=== PATIENT | female | born 1935 | race Caucasian/White ===

== ENCOUNTER 2017-12-26 19:31 | Emergency (ER) | payer MEDICARE, OTHER ==
[~2017-12-26] VITALS: Ht 162.6 cm; Wt 79.4 kg
[~2017-12-26 19:31] MED LIST: CALCIUM 600 +1 EA13 PO; DAILY VITAMIN1 EAC2 PO; HYDROCODON-ACE1 EA10 PO; LEVOTHYROXINE50 MCG PO; LISINOPRIL20 MG PO; METOPROLOL TART50 MG PO; NORCO 5-325 TA1 EACH PO; POTASSIUM CHLO10 ME1 PO; SIMVASTATIN20 MG PO; TEMAZEPAM15 MG PO; VITAMIN C100 MG PO; XARELTO15 MG PO
[2017-12-26] MEDS ORDERED: NORCO 5-325 TA1 EACH PO ×2 (22:20)
[2017-12-26] MEDS ORDERED: ULTRA-LIGHT RO1 EACH MISC (22:21)
== END 2017-12-26 22:50 | disposition home or self-care (01) ==
LOC: ED 19:31
DX: S83.91XA Sprain of unspecified site of right knee, initial encounter (principal); I10 Essential (primary) hypertension; E03.9 Hypothyroidism, unspecified; Z79.899 Other long term (current) drug therapy; X50.9XXA Other and unspecified overexertion or strenuous movements or postures, initial encounter
CPT/HCPCS: 73560; 99283

== ENCOUNTER 2017-12-27 09:32 | Emergency (ER) | payer MEDICARE, OTHER ==
[~2017-12-27] VITALS: Ht 162.6 cm; Wt 79.4 kg
[~2017-12-27 09:32] MED LIST changes: +ULTRA-LIGHT RO1 EACH MISC
== END 2017-12-27 11:00 | disposition home or self-care (01) ==
LOC: ED 09:32
DX: M25.561 Pain in right knee (principal); I10 Essential (primary) hypertension; E03.9 Hypothyroidism, unspecified; Z79.899 Other long term (current) drug therapy
CPT/HCPCS: 73700; 99284

== ENCOUNTER 2019-06-12 12:20 | Emergency (ER) | payer MEDICARE, OTHER ==
[~2019-06-12] VITALS: Ht 160 cm; Wt 84.4 kg
[2019-06-12] MEDS ORDERED: ZITHROMAX250 MG PO (14:48)
[2019-06-12] MEDS ORDERED: TESSALON PERLE100 MG PO (14:48)
== END 2019-06-12 15:09 | disposition home or self-care (01) ==
LOC: ED 12:20
DX: J40 Bronchitis, not specified as acute or chronic (principal); I10 Essential (primary) hypertension; E03.9 Hypothyroidism, unspecified; Z79.899 Other long term (current) drug therapy
CPT/HCPCS: 71046; 99284-25

== ENCOUNTER 2021-07-14 07:10 | Day surgery (SDC) | payer MEDICARE, OTHER ==
[~2021-07-14] VITALS: Ht 160 cm; Wt 79.4 kg
[~2021-07-14 07:10] MED LIST changes: +KLOR-CON20 MEQ PO; +LASIX20 MG PO; +MULTI VITAMIN1 EACH PO; +TESSALON PERLE100 MG PO; +VITAMIN C1000 MG PO; +ZITHROMAX250 MG PO
[2021-07-14] MEDS ORDERED: TORSEMIDE20 MG (07:56)
--- NOTE | 2021-07-14 09:35 | NUR ---
07/14/21 0935 Neha Sainz 0910-PATIENT ARRIVED TO PACU ON 6L MASK RR EVEN NONAROUSABLE. 6L MASK CO2 READING 30. PATIENT LAYING LEFT LATERAL. ABDOMEN SOFT. IVF INFUSING. AFIB
--- NOTE | 2021-07-14 10:49 | OR ---
[facility] [address] [place], [place] [address] Signed DATE OF OPERATION: 07/14/2021 SURGEON: Sam Magallanes MD PREOPERATIVE DIAGNOSES: 1. Chronic constipation and diarrhea. 2. Intermittent rectal bleeding and mucus. 3. Guaiac-positive stool. 4. Daily anticoagulation. 5. Unremarkable colonoscopy in 2010 with followup in 10 years. POSTOPERATIVE DIAGNOSES: 1. 5 mm polyps x2 in mid to distal right colon (snare). 2. 5 mm polyps x2 at hepatic flexure. 3. 5 mm polyps x2 at distal hepatic flexure. 4. 5 mm polyp x1, proximal transverse colon. 5. Minimal to moderate internal hemorrhoids. 6. Severe angulation at 20 cm. PROCEDURE: Colonoscopy with snare polypectomy and hot biopsy. ESTIMATED BLOOD LOSS: None. INDICATIONS: Meche is an 85-year-old female asked to see me for followup colonoscopy. She remembers a colonoscopy in 2010 while living in [place]. Apparently, there was an upper endoscopy done at the same time. She was positive for H pylori and took antibiotics. She felt much better. They told her to follow up in 10 years for a repeat colonoscopy. She wonders if she had another colonoscopy when she lived out in the [place]. Although her memory is not the best. She has no family history of colon cancer or polyps to her knowledge. She has chronic constipation and diarrhea for many years. She has had a couple of recent episodes of rectal bleeding and mucus. She had been to her primary care provider. She was guaiac positive. The C difficile toxin was negative. Her BUN was normal. The stool calprotectin was normal. She was not anemic with a hemoglobin of 13.5. She has a long history of atrial fibrillation requiring Xarelto. Her left ventricular ejection fraction is good about 45%. She also has good functional status. She even looks a little younger than her stated age. In the office, I had a long discussion with Meche. I gave her a pamphlet on colonoscopy. We reviewed Electronically Signed By: SAM MAGALLANES MD 07/14/21 1049 PATIENT NAME: MECHE BELTRAN OPERATIVE REPORT DATE OF : 37 REPORT #: [id number] PHYSICIAN: SAM MAGALLANES MD PCP: GANESH SEAMAN PA-C REPORT IS CONFIDENTIAL AND NOT TO BE RELEASED WITHOUT AUTHORIZATION [facility] [address] [place] [id number] Signed colonoscopy versus a barium enema. In the end, we decided to proceed with colonoscopy. She understands there is risk including, but not limited to gas bloating, crampy abdominal pain, bleeding, perforation requiring surgery, and missed diagnosis. We thought she would be fine with routine Versed and fentanyl. Although, she understands scope may not pass in 10% of patients. She had expressed understanding and wished to proceed. PROCEDURE NOTE: Meche was taken into our endoscopy suite and placed in the left lateral decubitus position. She was given a total of 5 mg of Versed and 100 mcg of fentanyl. Her digital rectal exam was unremarkable. The rectum was unremarkable as well. We encountered a rather significant angulated area in her colon at 20 cm. I suspect this is from her prior hysterectomy. We simply could not get through this area, she was in too much pain. We were even pushing all that much with the scope. We were fortunate to have an anesthesia provider available. With the addition of the propofol, she relaxed enough, we were able to get around angulation and travel up the rest of the colon. The scope continued to drag back at 20 cm. Fortunately, the rest of the colon was fairly easy to pass the scope. We then way into the cecum itself. Her prep was quite excellent. We could easily see the appendiceal orifice and the ileocecal valve. The scope was then slowly withdrawn. The first polyp in the mid to distal right colon we removed with a combination of hot biopsy and the snare. The rest of the polyps all came out with the help of a hot biopsy forceps. We did not see any diverticula. We came back into the rectum and again, it was unremarkable. Upon retroflexion of scope, we can see minimal to moderate internal hemorrhoids. After this, the gas was suctioned out and colonoscope removed. Overall, Meche tolerated the procedure quite well with the addition of the propofol. She may or may not have some recall prior to the propofol. RECOMMENDATIONS: I will see Meche back in my office in 7 to 14 days to review her results. If she would ever need another colonoscopy in the future, she certainly would need monitored anesthesia care. MD MALLORY Ball/DOROTEOL /[id number] Electronically Signed By: SAM MAGALLANES MD 07/14/21 1049 PATIENT NAME: MECHE BELTRAN OPERATIVE REPORT DATE OF : 37 REPORT #: [id number] PHYSICIAN: SAM MAGALLANES MD PCP: GANESH SEAMAN PA-C REPORT IS CONFIDENTIAL AND NOT TO BE RELEASED WITHOUT AUTHORIZATION [address] [place], [place] [address] Signed cc: LINDEN Galeas MD Copies: GANESH SEAMAN PA-C, ANDREW L MD ~ Electronically Signed By: SAM MAGALLANES MD 07/14/21 1049 PATIENT NAME: MECHE BELTRAN OPERATIVE REPORT DATE OF : 37 REPORT #: [id number] PHYSICIAN: SAM MAGALLANES MD PCP: GANESH SEAMAN PA-C REPORT IS CONFIDENTIAL AND NOT TO BE RELEASED WITHOUT AUTHORIZATION
== END 2021-07-14 10:45 | disposition home or self-care (01) ==
LOC: DS 07:10
PROVIDERS: ATTEND Colon & Rectal Surgery
PROC: 0DBL8ZX Excision of Transverse Colon, Via Natural or Artificial Opening Endoscopic, Diagnostic (ICD-10-PCS; 2021-07-14)
PROC: 0DBK8ZX Excision of Ascending Colon, Via Natural or Artificial Opening Endoscopic, Diagnostic (ICD-10-PCS; principal; 2021-07-14 08:15)
DX: D12.2 Benign neoplasm of ascending colon (principal); D12.3 Benign neoplasm of transverse colon; K64.4 Residual hemorrhoidal skin tags; K64.8 Other hemorrhoids; I12.0 Hypertensive chronic kidney disease with stage 5 chronic kidney disease or end stage renal disease; N18.6 End stage renal disease; I48.91 Unspecified atrial fibrillation; Z79.01 Long term (current) use of anticoagulants
CPT/HCPCS: J2250; J2704; J3010

== ENCOUNTER 2023-05-31 00:18 | Emergency (ER) | payer OTHER, MEDICARE ==
[~2023-05-31] VITALS: Ht 160 cm; Wt 81.7 kg
--- OUTSIDE RECORDS SUMMARY | ~2023-05-31 | XMS | Continuity of Care Document ---
Demographics + + + | Address | [address] | | | [place] [address] | + + + | Preferred Language | Unknown | + + + | Marital Status | | + + + | Lutheran Affiliation | Unknown | + + + | Race | White | + + + | Ethnic Group | Not or | + + + Author + + + | Author | [facility] | + + + | Organization | [facility] | + + + | Address | [address] | | | [place] [address] | + + + | Phone | | + + + Care Team Providers + + + + | Care Band Master Name | Role | Phone | + + + + Unavailable | Unavailable | + + + + Unavailable | Unavailable | + + + + Allergies No information. Encounters No information. Functional Status No information. Immunizations No information. Medications + + + + | date | description | facility | + + + + | 2023-03-07 00:00 | RIVAROXABAN | [facility] | + + + + | 2023-03-07 00:00 | POTASSIUM CHLORIDE | [facility] | + + + + | 2023-03-07 00:00 | TEMAZEPAM | [facility] | + + + + | 2023-03-07 00:00 | TORSEMIDE | [facility] | + + + + | 2023-03-07 00:00 | ASCORBIC ACID | [facility] | + + + + | 2023-03-06 00:00 | CEFDINIR | [facility] | + + + + | 2023-03-07 00:00 | FUROSEMIDE | [facility] | + + + + | 2019-06-12 00:00 | BENZONATATE | [facility] | + + + + | 2019-06-12 00:00 | AZITHROMYCIN | [facility] | + + + + | 2023-03-07 00:00 | LISINOPRIL | [facility] | + + + + | 2023-03-07 00:00 | POTASSIUM CHLORIDE | [facility] | + + + + | 2015-02-24 00:00 | HYDROCODONE | [facility] | | | BIT/ACETAMINOPHEN | | + + + + | 2016-10-12 00:00 | HYDROCODONE | [facility] | | | BIT/ACETAMINOPHEN | | + + + + | 2017-12-26 00:00 | HYDROCODONE | [facility] | | | BIT/ACETAMINOPHEN | | + + + + | 2023-03-07 00:00 | METOPROLOL TARTRATE | [facility] | + + + + | 2023-03-07 00:00 | LEVOTHYROXINE SODIUM | [facility] | + + + + Problems + + + + | date | description | facility | + + + + | 2016-10-12 00:00 | Fracture of distal end of | [facility] | | | right radius and ulna | | + + + + | 2017-12-26 00:00 | Sprain of right knee | [facility] | + + + + | 2017-12-27 00:00 | Right knee pain | [facility] | + + + + | 2019-06-12 00:00 | Bronchitis | [facility] | + + + + | 2023-03-06 00:00 | Urinary tract infection | [facility] | + + + + | 2023-03-06 22:08 | HYPOTHYROIDISM, | [facility] | | | UNSPECIFIED | | + + + + | 2023-03-06 22:08 | Essential (primary) | [facility] | | | hypertension | | + + + + | 2023-03-06 22:08 | URINARY TRACT INFECTION, | [facility] | | | SITE NOT SPECIFIED | | + + + + | 2023-03-06 22:08 | DISORIENTATION, | [facility] | | | UNSPECIFIED | | + + + + | 2023-03-06 22:08 | COOKER PIE FILLING (CURRENT) USE OF | [facility] | | | ANTICOAGULANTS | | + + + + | 2023-03-06 22:08 | OTHER HALF-WAY (CURRENT) | [facility] | | | DRUG THERAPY | | + + + + Procedures No information. Results/Labs +--------+--------+ +---------+--------+---------+ | test | date | facility | value | unit | notes | +--------+--------+ +---------+--------+---------+ + + | Result panel 1 | + + + + + +--------+ + + | | 2023-03-06 | [facility] | 10.4 | (missing) | (missing) | | (unavailable | [facility]30:07 [facility] | | | | + + + +--------+ + + + + | Result panel 2 | + + + + + +--------+ + + | | 2023-03-06 | [facility] | 85.4 | (missing) | (missing) | | (unavailable | [facility]30:07 [facility] | | | | + + + +--------+ + + + + | Result panel 3 | + + + + + +-------+ + + | | 2023-03-06 | [facility] | 5.9 | (missing) | (missing) | | (unavailable | [facility]30[facility]07 [facility] | | | | + + + +-------+ + + + + | Result panel 4 | + + + + + +-------+ + + | | 2023-03-06 | [facility] | 8.4 | (missing) | (missing) | | (unavailable | [facility]30[facility]07 [facility] | | | | + + + +-------+ + + + + | Result panel 5 | + + + + + +-------+ + + | | 2023-03-06 | [facility] | 0.0 | (missing) | (missing) | | (unavailable | [facility]07 [facility] | | | | + + + +-------+ + + + + | Result panel 6 | + + + + + +-------+ + + | | 2023-03-06 | [facility] | 0.3 | (missing) | (missing) | | (unavailable | [facility] | | | | + + + +-------+ + + + + | Result panel 7 | + + + + + +--------+ + + | | 2023-03-06 | [facility] | 13.0 | (missing) | (missing) | | (unavailable | [facility]07 [facility] | | | | + + + +--------+ + + + + | Result panel 8 | + + + + + +--------+ + + | | 2023-03-06 | [facility] | 1.02 | (missing) | (missing) | | (unavailable | [facility]07 [facility] | | | | + + + +--------+ + + + + | Result panel 9 | + + + + + + + + + | | 2023-03-06 | [facility] | YELLOW | (missing) | (missing) | | (unavailable | [facility]07 [facility] | | | | + + + + + + + + + | Result panel 10 | + + + + + +---------+ + + | | 2023-03-06 | [facility] | CLEAR | (missing) | (missing) | | (unavailable | [facility]07 [facility] | | | | + + + +---------+ + + + + | Result panel 11 | + + + + + +---------+ + + | | 2023-03-06 | [facility] | SMALL | (missing) | (missing) | | (unavailable | [facility]30[facility]07 [facility] | | | | + + + +---------+ + + + + | Result panel 12 | + + + + + +--------+ + + | | 2023-03-06 | [facility] | 4.60 | (missing) | (missing) | | (unavailable | [facility]30[facility]07 [facility] | | | | + + + +--------+ + + + + | Result panel 13 | + + + + + + + + + | | 2023-03-06 | [facility] | NEGATIVE | (missing) | (missing) | | (unavailable | [facility]07 [facility] | | | | + + + + + + + + + | Result panel 14 | + + + + + +---------+ + + | | 2023-03-06 | [facility] | SMALL | (missing) | (missing) | | (unavailable | [facility]07 [facility] | | | | + + + +---------+ + + + + | Result panel 15 | + + + + + +---------+ + + | | 2023-03-06 | [facility] | 1.015 | (missing) | (missing) | | (unavailable | [facility]30[facility]07 [facility] | | | | + + + +---------+ + + + + | Result panel 16 | + + + + + + + + + | | 2023-03-06 | [facility] | TRACE-I | (missing) | (missing) | | (unavailable | [facility]30[facility]07 [facility] | | | | + + + + + + + + + | Result panel 17 | + + + + + +-------+ + + | | 2023-03-06 | [facility] | 7.5 | (missing) | (missing) | | (unavailable | [facility]30[facility]07 [facility] | | | | + + + +-------+ + + + + | Result panel 18 | + + + + + +-------+ + + | | 2023-03-06 | [facility] | 100 | (missing) | (missing) | | (unavailable | [facility]30:07 [facility] | | | | + + + +-------+ + + + + | Result panel 19 | + + + + + + + + + | | 2023-03-06 | [facility] | NORMAL | (missing) | (missing) | | (unavailable | [facility]30[facility]07 [facility] | | | | + + + + + + + + + | Result panel 20 | + + + + + + + + + | | 2023-03-06 | [facility] | NEGATIVE | (missing) | (missing) | | (unavailable | [facility]07 [facility] | | | | + + + + + + + + + | Result panel 21 | + + + + + + + + + | | 2023-03-06 | [facility] | NEGATIVE | (missing) | (missing) | | (unavailable | [facility]07 [facility] | | | | + + + + + + + + + | Result panel 22 | + + + + + +-------+ + + | | 2023-03-06 | [facility] | 2-3 | (missing) | (missing) | | (unavailable | [facility]07 [facility] | | | | + + + +-------+ + + + + | Result panel 23 | + + + + + +--------+ + + | | 2023-03-06 | [facility] | 14.5 | (missing) | (missing) | | (unavailable | [facility]07 [facility] | | | | + + + +--------+ + + + + | Result panel 24 | + + + + + +---------+ + + | | 2023-03-06 | [facility] | 21-40 | (missing) | (missing) | | (unavailable | [facility]07 [facility] | | | | + + + +---------+ + + + + | Result panel 25 | + + + + + + + + + | | 2023-03-06 | [facility] | SQUAMOUS 1+ | (missing) | (missing) | | (unavailable | [facility]07 [facility] | | | | + + + + + + + + + | Result panel 26 | + + + + + + + + + | | 2023-03-06 | [facility] | NONE SEEN | (missing) | (missing) | | (unavailable | [facility]07 [facility] | | | | + + + + + + + + + | Result panel 27 | + + + + + +------+ + + | | 2023-03-06 | [facility] | 2+ | (missing) | (missing) | | (unavailable | [facility]07 [facility] | | | | + + + +------+ + + + + | Result panel 28 | + + + + + + + + + | | 2023-03-06 | [facility] | HYALINE 1+ | (missing) | (missing) | | (unavailable | [facility]07 [facility] | | | | + + + + + + + + + | Result panel 29 | + + + + + +-------+ + + | | 2023-03-06 | [facility] | Yes | (missing) | (missing) | | (unavailable | [facility]07 [facility] | | | | + + + +-------+ + + + + | Result panel 30 | + + + + + +-------+---------+ + | | 2023-03-06 | [facility] | 148 | mg/dL | (missing) | | (unavailable | [facility]:07 [facility] | | | | + + + +-------+---------+ + + + | Result panel 31 | + + + + + +------+---------+ + | | 2023-03-06 | [facility] | 20 | mg/dL | (missing) | | (unavailable | [facility]07 [facility] | | | | + + + +------+---------+ + + + | Result panel 32 | + + + + + +--------+---------+ + | | 2023-03-06 | [facility] | 1.40 | mg/dL | (missing) | | (unavailable | [facility]07 [facility] | | | | + + + +--------+---------+ + + + | Result panel 33 | + + + + + +------+ + + | | 2023-03-06 | [facility] | 37 | (missing) | (missing) | | (unavailable | [facility]07 [facility] | | | | + + + +------+ + + + + | Result panel 34 | + + + + + +--------+ + + | | 2023-03-06 | [facility] | 43.7 | (missing) | (missing) | | (unavailable | [facility]07 [facility] | | | | + + + +--------+ + + + + | Result panel 35 | + + + + + +---------+ + + | | 2023-03-06 | [facility] | 14.28 | (missing) | (missing) | | (unavailable | [facility]07 [facility] | | | | + + + +---------+ + + + + | Result panel 36 | + + + + + +-------+ + + | | 2023-03-06 | [facility] | 139 | (missing) | (missing) | | (unavailable | [facility]07 [facility] | | | | + + + +-------+ + + + + | Result panel 37 | + + + + + +-------+ + + | | 2023-03-06 | [facility] | 3.4 | (missing) | (missing) | | (unavailable | [facility]07 [facility] | | | | + + + +-------+ + + + + | Result panel 38 | + + + + + +-------+ + + | | 2023-03-06 | [facility] | 102 | (missing) | (missing) | | (unavailable | [facility]30:07 [facility] | | | | + + + +-------+ + + + + | Result panel 39 | + + + + + +------+ + + | | 2023-03-06 | [facility] | 25 | (missing) | (missing) | | (unavailable | [facility]30[facility]07 [facility] | | | | + + + +------+ + + + + | Result panel 40 | + + + + + +--------+ + + | | 2023-03-06 | [facility] | 15.4 | (missing) | (missing) | | (unavailable | [facility]30[facility]07 [facility] | | | | + + + +--------+ + + + + | Result panel 41 | + + + + + +-------+---------+ + | | 2023-03-06 | [facility] | 9.4 | mg/dL | (missing) | | (unavailable | [facility]30:07 [facility] | | | | + + + +-------+---------+ + + + | Result panel 42 | + + + + + +-------+ + + | | 2023-03-06 | [facility] | 7.9 | (missing) | (missing) | | (unavailable | [facility]30[facility]07 [facility] | | | | + + + +-------+ + + + + | Result panel 43 | + + + + + +-------+ + + | | 2023-03-06 | [facility] | 3.7 | (missing) | (missing) | | (unavailable | [facility]30[facility]07 [facility] | | | | + + + +-------+ + + + + | Result panel 44 | + + + + + +-------+ + + | | 2023-03-06 | [facility] | 4.2 | (missing) | (missing) | | (unavailable | [facility]30[facility]07 [facility] | | | | + + + +-------+ + + + + | Result panel 45 | + + + + + +--------+ + + | | 2023-03-06 | [facility] | 95.0 | (missing) | (missing) | | (unavailable | [facility]30[facility]07 [facility] | | | | + + + +--------+ + + + + | Result panel 46 | + + + + + +--------+ + + | | 2023-03-06 | [facility] | 0.88 | (missing) | (missing) | | (unavailable | [facility]30[facility]07 [facility] | | | | + + + +--------+ + + + + | Result panel 47 | + + + + + +-------+ + + | | 2023-03-06 | [facility] | 1.2 | (missing) | (missing) | | (unavailable | [facility]30[facility]07 [facility] | | | | + + + +-------+ + + + + | Result panel 48 | + + + + + +------+ + + | | 2023-03-06 | [facility] | 19 | (missing) | (missing) | | (unavailable | [facility]30[facility]07 [facility] | | | | + + + +------+ + + + + | Result panel 49 | + + + + + +------+ + + | | 2023-03-06 | [facility] | 17 | (missing) | (missing) | | (unavailable | [facility]30:07 [facility] | | | | + + + +------+ + + + + | Result panel 50 | + + + + + +------+ + + | | 2023-03-06 | [facility] | 87 | (missing) | (missing) | | (unavailable | [facility]30[facility]07 [facility] | | | | + + + +------+ + + + + | Result panel 51 | + + + + + +--------+ + + | | 2023-03-06 | [facility] | 23.9 | (missing) | (missing) | | (unavailable | [facility]30[facility]07 [facility] | | | | + + + +--------+ + + + + | Result panel 52 | + + + + + +--------+ + + | | 2023-03-06 | [facility] | 31.4 | (missing) | (missing) | | (unavailable | [facility]30[facility]07 [facility] | | | | + + + +--------+ + + + + | Result panel 53 | + + + + + +--------+ + + | | 2023-03-06 | [facility] | 33.1 | (missing) | (missing) | | (unavailable | [facility]30[facility]07 [facility] | | | | + + + +--------+ + + + + | Result panel 54 | + + + + + +--------+ + + | | 2023-03-06 | [facility] | 13.9 | (missing) | (missing) | | (unavailable | [facility]30[facility]07 [facility] | | | | + + + +--------+ + + + + | Result panel 55 | + + + + + +-------+ + + | | 2023-03-06 | [facility] | 314 | (missing) | (missing) | | (unavailable | [facility]07 [facility] | | | | + + + +-------+ + + Social History No information. Vital Signs + + + +---------+ | date | measurement | value | units | + + + +---------+ | 2023-03-06 00:00 | BMI | 32.1 | kg/m2 | + + + +---------+ | 2023-03-06 00:00 | height_metric | 160.02 | cm | + + + +---------+ | 2023-03-06 00:00 | height_standard | 63 | in | + + + +---------+ | 2023-03-06 00:00 | weight_metric | 82.3 | kg | + + + +---------+ | 2023-03-06 00:00 | weight_standard | 181.44 | lb | + + + +---------+ | 2023-03-07 00:00 | BP_diastolic | 97 | mmHg | + + + +---------+ | 2023-03-07 00:00 | BP_systolic | 164 | mmHg | + + + +---------+ | 2023-03-07 00:00 | heart_rate | 118 | /min | + + + +---------+ | 2023-03-07 00:00 | o2_saturation | 95 | % | + + + +---------+ | 2023-03-07 00:00 | respiration_rate | 20 | /min | + + + +---------+ | 2023-03-07 00:00 | temperature_metric | 36.78 | C | | | | | | + + + +---------+ | 2023-03-07 00:00 | | 98.2 | F | | | temperature_standar | | | | | d | | | + + + +---------+"
--- OUTSIDE RECORDS SUMMARY | ~2023-05-31 | XMS | Continuity of Care Document ---
Demographics + + + | Address | [address] | | | [place] [address] | + + + | Preferred Language | Unknown | + + + | Marital Status | | + + + | Church Affiliation | Unknown | + + + | Race | White | + + + | Ethnic Group | Not or | + + + Author + + + | Author | [facility] | + + + | Organization | [facility] | + + + | Address | [address] | | | [place] [address] | + + + | Phone | | + + + Care Team Providers + + + + | Care Bar Captain Name | Role | Phone | + + + + Unavailable | Unavailable | + + + + Unavailable | Unavailable | + + + + Allergies No information. Encounters No information. Functional Status No information. Immunizations No information. Medications + + + + | date | description | facility | + + + + | 2023-03-07 00:00 | RIVAROXABAN | [facility] | + + + + | 2023-03-07 00:00 | POTASSIUM CHLORIDE | [facility] | + + + + | 2023-03-07 00:00 | TEMAZEPAM | [facility] | + + + + | 2023-03-07 00:00 | TORSEMIDE | [facility] | + + + + | 2023-03-07 00:00 | ASCORBIC ACID | [facility] | + + + + | 2023-03-06 00:00 | CEFDINIR | [facility] | + + + + | 2023-03-07 00:00 | FUROSEMIDE | [facility] | + + + + | 2019-06-12 00:00 | BENZONATATE | [facility] | + + + + | 2019-06-12 00:00 | AZITHROMYCIN | [facility] | + + + + | 2023-03-07 00:00 | LISINOPRIL | [facility] | + + + + | 2023-03-07 00:00 | POTASSIUM CHLORIDE | [facility] | + + + + | 2015-02-24 00:00 | HYDROCODONE | [facility] | | | BIT/ACETAMINOPHEN | | + + + + | 2016-10-12 00:00 | HYDROCODONE | [facility] | | | BIT/ACETAMINOPHEN | | + + + + | 2017-12-26 00:00 | HYDROCODONE | [facility] | | | BIT/ACETAMINOPHEN | | + + + + | 2023-03-07 00:00 | METOPROLOL TARTRATE | [facility] | + + + + | 2023-03-07 00:00 | LEVOTHYROXINE SODIUM | [facility] | + + + + Problems + + + + | date | description | facility | + + + + | 2016-10-12 00:00 | Fracture of distal end of | [facility] | | | right radius and ulna | | + + + + | 2017-12-26 00:00 | Sprain of right knee | [facility] | + + + + | 2017-12-27 00:00 | Right knee pain | [facility] | + + + + | 2019-06-12 00:00 | Bronchitis | [facility] | + + + + | 2023-03-06 00:00 | Urinary tract infection | [facility] | + + + + | [...] + + + | 2023-03-06 22:08 | LIFE SCIENTIST (CURRENT) USE OF | [facility] | | | ANTICOAGULANTS | | + + + + | 2023-03-06 22:08 | OTHER SENIOR CARE (CURRENT) | [facility] | | | DRUG [...]
[~2023-05-31 00:18] MED LIST changes: +CEFDINIR300 MG PO; +KLOR-CON M1010 MEQ PO; +LEVOTHYROXINE75 MCG PO; +TORSEMIDE20 MG
[2023-05-31 01:06] VITALS: BP 176/109
== END 2023-05-31 01:07 | disposition home or self-care (01) ==
LOC: ED 00:18
DX: S80.01XA Contusion of right knee, initial encounter (principal); W01.10XA Fall on same level from slipping, tripping and stumbling with subsequent striking against unspecified object, initial encounter; I10 Essential (primary) hypertension; E03.9 Hypothyroidism, unspecified; Z79.899 Other long term (current) drug therapy
CPT/HCPCS: 73560; 73660; 99283-25; A9270

== ENCOUNTER 2023-10-02 12:54 | Day surgery (SDC) | payer MEDICARE, OTHER ==
[2023-10-02] MEDS ORDERED: WOMEN'S 50 PLU1 EACH PO (13:27)
[2023-10-02] MEDS ORDERED: VITAMIN C100 MG PO (13:27)
[2023-10-02] MEDS ORDERED: CALCIUM500 M1 PO (13:27)
[2023-10-02 13:41] VITALS: BP 161/89
[2023-10-02 16:38] VITALS: BP 174/87
--- NOTE | 2023-10-02 17:49 | NUR ---
10/02/23 1749 Myrna Talbot 1603 PT ARRIVED TO PACU ON 2L VIA NC, PT ASLEEP AND RESP EVEN AND UNLABORED. 1605 PT WAKES TO TACTILE STIMULI AND REORIENTED TO PACU, THREE LEAD PLACED DUE TO IRREGULAR HEART BEAT SOUND NOTED. A-FIB NOTED AND BASELINE FOR PT. 1617 MD AT BEDSIDE TALKING TO PT, IRREGULAR HEART RHYTHUM AND INCREASED BP NOTED AND MD AWARE. TOLD TO FOLLOW UP WITH PCP. 1630 PT UP TO BATHROOM AND DAUGHTER IN LAW AT BEDSIDE. DC INSTRUCTIONS DISCUSSED WITH DAUGHTER IN LAW AND PLAN OF CARE DSICUSSED. PT SIPPING JUICE PER REQUEST. 1640 PT RETUNRED TO BED AND RN HELPED PT DRESS. RX WITH DC PAPERWORK DISCUSSED AND GIVEN. PT DC VIA WC TO DAUGHTER IN LAW. BOTH VERBALIZED UNDERSTANDING OF MEDICATIONS AND RX, ALL QUESTIONS ANSWERED.
--- NOTE | 2023-10-03 10:51 | OR ---
[facility] [address], [place] [address] Signed DATE OF OPERATION: 10/02/2023 SURGEON: Dami Romero MD PREOPERATIVE DIAGNOSIS: Episodic cervical dysphagia, prior ENT evaluation negative. POSTOPERATIVE DIAGNOSES: Hiatal hernia with minimal distal esophagitis. No evidence of hypopharyngeal stricture, neoplasm, or inflammation. PROCEDURE: Esophagogastroduodenoscopy with biopsy. ANESTHESIA: Intravenous sedation; fentanyl 100 mcg and Versed 3 mg. INDICATION: This 87-year-old white woman is a patient of LILIANA Hanson and was referred for consideration of upper endoscopy on the basis of cervical dysphagia for the past three years. She has had prior ENT evaluation which was said to be negative. She does complain of now a sore throat, but not true dysphagia in the cervical area. She notes that massage has helped. 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 She is admitted to undergo upper endoscopy to better characterize her symptoms. She understands the risk of bleeding, infection, and perforation. FINDINGS: The vocal cords and hypopharyngeal tissues were normal. There is no sign of active inflammation. I thought there was some tonsillolith identified on the left side. She did not have tonsillitis proper so far as could be told, however. The esophagus itself was reasonably normal. The distal portion may have mild inflammation, however. There was a hiatal hernia. Stomach and duodenum were essentially normal. CLOtest was negative. DESCRIPTION OF PROCEDURE: The patient was brought to the endoscopy suite and placed in the lateral decubitus position and underwent topical hypopharyngeal lidocaine anesthesia. A bite block was placed. She was given intravenous sedation to the point of slurred speech and nystagmus with full cardiopulmonary monitoring. Olympus video upper endoscope was passed in the hypopharynx. The vocal cords appeared normal. Careful inspection showed no sign of Electronically Signed By: DAMI ROMERO MD 10/03/23 1051 PATIENT NAME: MECHE BELTRAN OPERATIVE REPORT DATE OF : 37 REPORT #: [id number] PHYSICIAN: DAMI ROMERO MD PCP: CRISELDA SCHUSTER PA-C REPORT IS CONFIDENTIAL AND NOT TO BE RELEASED WITHOUT AUTHORIZATION [facility] [address], [place] [address] Signed other abnormality. The scope was carefully insinuated into the hypopharynx and into the upper portion of the esophagus without impediment. There was no evidence of obvious stricture. The scope was advanced down the esophagus where the distal portion had minimal inflammation. The scope was then advanced to the stomach which was insufflated with air. Rugal folds were normal. Pylorus was normal. Scope was passed through into the duodenum, which was reasonably normal. Biopsies were taken of the duodenum to assess for celiac disease. The scope was withdrawn and biopsies taken of the antrum for both TU and pathologic testing. Retroflexed view was undertaken showing a moderate-sized hiatal hernia. Careful withdrawal of scope to the distal esophagus showed no sign of Blankenship's epithelium and only minimal inflammation as manifested by erythema. Biopsies were obtained. The scope was withdrawn and biopsies then taken of the middle esophagus. Careful withdrawal of the scope through the hypopharyngeal area again demonstrated the area of the upper esophageal sphincter, which was normal without stricture or neoplasm. Careful inspection of the hypopharyngeal tissues showed no other abnormality other than perhaps small tonsillolith in her tonsillar remnant. The scope was removed and the patient was taken to the recovery room in good condition. CONCLUDING DIAGNOSIS: No clear evidence of lesion to account for cervical dysphagia. PLAN: We will treat with Carafate 1 g slurry t.i.d. We will see her back in 6 to 8 weeks and assess her progress and level of complaint. MD RENEE Mao/MODL /[id number] cc: Criselda Schuster PA-C Copies: CRISELDA SCHUSTER PA-C ~ Electronically Signed By: DAMI ROMERO MD 10/03/23 1051 PATIENT NAME: MECHE BELTRAN OPERATIVE REPORT DATE OF : 37 REPORT #: [id number] PHYSICIAN: DAMI ROMERO MD PCP: CRISELDA SCHUSTER PA-C REPORT IS CONFIDENTIAL AND NOT TO BE RELEASED WITHOUT AUTHORIZATION
--- NOTE | 2023-10-05 11:39 | PATH ---
[facility] [address], [place] [address] Signed SPECIMEN(S): A DUODENAL BIOPSY SPECIMEN(S): B ANTRUM/ANTRAL BIOPSY SPECIMEN(S): C DISTAL ESOPHAGEAL BIOPSY SPECIMEN(S): D MIDDLE ESOPHAGEAL BIOPSY SPECIMEN SOURCE: A. DUODENAL BIOPSY B. ANTRUM/ANTRAL BIOPSY C. DISTAL ESOPHAGEAL BIOPSY D. MIDDLE ESOPHAGEAL BIOPSY CLINICAL HISTORY: Oropharyngeal dysphagia, hiatal hernia, distal esophagitis FINAL PATHOLOGIC DIAGNOSIS: A. Duodenal biopsy: - Benign duodenal mucosa, negative for specific diagnostic abnormality. B. Antrum / antral biopsy: - Benign gastric mucosa with focal slight chronic inflammation. - Negative for Helicobacter organisms on routine HE stained sections. C. Distal esophageal biopsy: - Benign esophageal mucosa, negative for increased epithelial eosinophils. - Negative for glandular mucosa. D. Mid esophageal biopsy: - Benign esophageal mucosa, negative for increased epithelial eosinophils. JVR:[facility] MICROSCOPIC EXAMINATION: Histologic sections of all submitted blocks are examined by light microscopy. These findings, together with the gross examination, support the pathologic diagnosis. Histologic sections of all submitted blocks are examined by light microscopy. These findings, together with the gross examination, support the pathologic diagnosis. GROSS DESCRIPTION: A. The specimen, labeled and designated "Oliver, 1" and designated on the requisition "biopsy, duodenum," is received in formalin and consists of two sierra soft tissue fragments, ranging from 0.2-0.4 cm. Entirely submitted in (A1). B. The specimen, labeled and designated "Oliver, 2" and designated on the PATIENT NAME: MECHE BELTRAN PATHOLOGY DATE OF : 37 REPORT #: [id number] PHYSICIAN: JERI MATT PCP: GANESH SEAMAN PA-C REPORT IS CONFIDENTIAL AND NOT TO BE RELEASED WITHOUT AUTHORIZATION [facility] [address], [place] [address] Signed requisition "antrum/pylorus biopsy," is received in formalin and consists of two sierra soft tissue fragments, ranging from 0.3-0.5 cm. Entirely submitted in (B1). C. The specimen, labeled and designated "Oliver, 3" and designated on the requisition "biopsy, esophagus, distal," is received in formalin and consists of two white-sierra soft tissue fragments, ranging from 0.2-0.4 cm. Entirely submitted in (C1). D. The specimen, labeled and designated "Oliver, 4" and designated on the requisition "biopsy, middle esophagus," is received in formalin and consists of two white-sierra soft tissue fragments, ranging from 0.4-0.5 cm. Entirely submitted in (D1). AC (under the direct supervision of a pathologist) The Gross Description was prepared using a voice recognition system. The report was reviewed for accuracy; however, sound-alike word errors, addition and/or deletions may occur. If there is any question about this report, please contact Client Services. ADDITIONAL NOTES: Immunohistochemical and/or in situ hybridization studies if performed in this case included appropriate positive controls that reacted as expected. This test was developed and its performance characteristics determined by [facility]. It has not been cleared or approved by the U.S. Food and Drug Administration. The FDA has determined that such clearance or approval is not necessary. This test is used for clinical purposes. It should not be regarded as investigational or for research. [facility] is certified under the Clinical Laboratory Improvement Amendments of 1988 (CLIA) as qualified to perform high complexity clinical laboratory testing. PERFORMING LABORATORY: Technical component was performed by [facility], [facility] [place] [address] (CLIA# [id number]). Professional interpretation was performed by [facility] - [facility], [address] [place] [address], [place] [address] (CLIA#: [id number]). Diagnostician: Duglas Campos MD Pathologist Electronically Signed 10/05/2023 PATIENT NAME: LAVERNE BELTRANJORIE EITAN PATHOLOGY DATE OF : 37 REPORT #: [id number] PHYSICIAN: JERI PATHOLOGY PCP: GANESH SEAMAN PA-C REPORT IS CONFIDENTIAL AND NOT TO BE RELEASED WITHOUT AUTHORIZATION [facility] [address] [facility] [place] [address] Signed Copies: ~ PATIENT NAME: MECHE BELTRAN PATHOLOGY DATE OF : 37 REPORT #: [id number] PHYSICIAN: JERI MATT PCP: GANESH SEAMAN PA-C REPORT IS CONFIDENTIAL AND NOT TO BE RELEASED WITHOUT AUTHORIZATION
== END 2023-10-02 18:00 | disposition home or self-care (01) ==
LOC: DS 12:54 → OPS 12:54 → DS 13:45 → OPS 13:45
PROVIDERS: ATTEND Surgery
PROC: 0DB78ZX Excision of Stomach, Pylorus, Via Natural or Artificial Opening Endoscopic, Diagnostic (ICD-10-PCS; 2023-10-02)
PROC: 0DB28ZX Excision of Middle Esophagus, Via Natural or Artificial Opening Endoscopic, Diagnostic (ICD-10-PCS; principal; 2023-10-02 13:45)
DX: K20.90 Esophagitis, unspecified without bleeding (principal); R13.19 Other dysphagia; N18.6 End stage renal disease; E03.9 Hypothyroidism, unspecified; I48.91 Unspecified atrial fibrillation
CPT/HCPCS: 99153; G0500; J2250; J3010; J7121